=== PATIENT | female | born 1970 | race African-American/Black ===

== ENCOUNTER 2017-01-03 13:56 | Emergency (ER) | payer OTHER ==
[~2017-01-03] VITALS: Ht 167.6 cm; Wt 84.0 kg
[2017-01-03 13:58] VITALS: BP 146/80; PULSE 77; RESP 15; TEMP 98.2; O2SAT 98
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
[2017-01-03] MEDS ORDERED: IBUPROFEN 800 MG TAB PO ONE (14:15)
[2017-01-03 14:34] VITALS: BP 140/77; PULSE 90; RESP 20; TEMP 98.7; O2SAT 98
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
[2017-01-03] MEDS ORDERED: CYCL5TAB PO (14:52)
[2017-01-03] MEDS ORDERED: IBUP800T23 PO (14:52)
== END 2017-01-03 15:16 | disposition home or self-care (01) ==
LOC: NEPD 13:56
DX: S39.012A Strain of muscle, fascia and tendon of lower back, initial encounter (principal); V49.50XA Passenger injured in collision with unspecified motor vehicles in traffic accident, initial encounter; Y92.414 Local residential or business street as the place of occurrence of the external cause
CPT/HCPCS: 72072; 72110; 99283